=== PATIENT | male | born 2000 | race African-American/Black ===

== ENCOUNTER 2020-03-13 13:05 | Emergency (ER) | payer OTHER ==
[2020-03-13 17:54] LABS: SARS-CoV-2 MS2 Positive; SARS-CoV-2 N Gene Negative; SARS-CoV-2 S Gene Negative; SARS-CoV-2 orf1ab Negative
== END 2020-03-13 13:35 | disposition home or self-care (01) ==
LOC: ERS 13:05
DX: Z20.828 Contact with and (suspected) exposure to other viral communicable diseases (principal); E10.9 Type 1 diabetes mellitus without complications
CPT/HCPCS: 87635; 99283; U0003